=== PATIENT | female | born 1970 | race Caucasian/White ===

== ENCOUNTER 2018-04-30 15:30 | Outpatient (CLI) | payer OTHER ==
--- NOTE | 2018-05-03 15:19 | Mammography Report ---
Procedure Date: 04/30/2018 Accession Number: [id number] / [id number] Procedure: KACY - Screening Mammo Dig Bilat CPT Code: FULL RESULT: EXAM: Screening Mammo Dig Bilat DATE: 04/30/2018 3:57 PM CLINICAL HISTORY: 47-year-old nulliparous patient for screening TECHNIQUE: Bilateral CC, laterally exaggerated CC, MLO views were obtained. COMPARISON: 02/20/2015 FINDINGS: The breasts demonstrate heterogeneously dense fibroglandular parenchyma bilaterally. A few punctate, typically benign calcifications are present. No suspicious masses, clustered microcalcifications, or regions of architectural distortion are identified. IMPRESSION: Benign findings RECOMMENDATION: Routine annual screening unless otherwise clinically indicated. BIRADS CATEGORY 2: Benign findings STANDARD QUALIFYING STATEMENTS: 1. This examination was reviewed with the aid of Computer-Aided Detection (CAD). 2. A negative or benign imaging report should not delay biopsy if clinically suspicious findings are present. Consider surgical consultation if warrented. More than 5% of cancers are not identified by imaging. 3. Dense breasts may obscure an underlying neoplasm.
== END 2018-04-30 15:31 | disposition home or self-care (01) ==
LOC: DI 15:30
PROVIDERS: ATTEND Physician Assistant
DX: Z12.31 Encounter for screening mammogram for malignant neoplasm of breast (principal)
CPT/HCPCS: 77067

== ENCOUNTER 2022-11-24 14:15 | Outpatient (CLI) | payer BC ==
--- NOTE | 2022-11-24 14:57 | Ultrasound Report ---
PROCEDURE: Duplex Ext Veins Right INDICATIONS: EDEMA TECHNIQUE: Real-time imaging, as well as color and pulse Doppler interrogation, were performed of the lower extr emity deep veins from the inguinal ligament to the popliteal fossa. COMPARISON: None. FINDINGS: The deep veins are normally compressible, and free of intraluminal thrombus. Color and pu lse Doppler demonstrate normal phasic intraluminal flow. There is normal augmentation response to di stal compression maneuver. IMPRESSION: No deep venous thrombosis. Reviewed by: Kathy Pina MD on 11/24/2022 2:56 PM PST Approved by: Kathy Pina MD on 11/24/2022 2:56 PM PST Station ID: [id number]
== END 2022-11-24 14:16 | disposition home or self-care (01) ==
LOC: DI 14:15
PROVIDERS: ATTEND Nurse Practitioner Family
DX: R60.0 Localized edema (principal)

== ENCOUNTER 2022-11-27 08:30 | Outpatient (CLI) | payer BC ==
--- NOTE | 2022-11-27 12:19 | XRAY Report ---
PROCEDURE: Shoulder 3 View LT INDICATIONS: LEFT SHOULDER PAIN TECHNIQUE: 3 views of the shoulder were acquired. COMPARISON: None. FINDINGS: Bones: No fractures or dislocations. No suspicious bony lesions. Visualized ribs appear intact. Mi ld acromioclavicular degenerative narrowing. Soft tissues: No suspicious soft tissue calcifications. IMPRESSION: Mild acromioclavicular arthritic change. Reviewed by: Kathy Pina MD on 11/27/2022 12:18 PM PST Approved by: Kathy Pina MD on 11/27/2022 12:18 PM PST Station ID: [id number]
--- NOTE | 2022-11-27 16:19 | XRAY Report ---
PROCEDURE: Knee 3 View RT INDICATIONS: RIGHT KNEE PAIN TECHNIQUE: 3 views of the right knee(s) were acquired. COMPARISON: None. FINDINGS: Bones: No fractures or dislocations. No suspicious bony lesions. Soft tissues: No joint effusion. No suspicious soft tissue calcifications. IMPRESSION: No acute fracture. No osseous lesion. If symptoms and/or clinical suspicion for patholog y continue, further assessment with repeat plain films, or advanced imaging (e.g., CT, MRI, or bone s can) is recommended for further assessment. Reviewed by: Philip Lawson MD on 11/27/2022 4:18 PM PST Approved by: Philip Lawson MD on 11/27/2022 4:18 PM PST Station ID: [id number]
--- NOTE | 2022-11-27 16:40 | XRAY Report ---
PROCEDURE: Hip w/Pelvis 2-3V RT INDICATIONS: RIGHT HIP PAIN TECHNIQUE: AP pelvis with lateral view(s) of the right hip(s). COMPARISON: None. FINDINGS: Bones: No fractures or dislocations. Pelvic ring appears intact. No suspicious bony lesions. Mild bilateral hip joint space narrowing and periarticular osteophyte formation. Soft tissues: The visualized bowel gas pattern is normal. No suspicious soft tissue calcifications. IMPRESSION: Bilateral hip osteoarthritis. No acute fracture. No osseous lesion. If symptoms and/or c linical suspicion for pathology continue, further assessment with repeat plain films, or advanced zackary ging (e.g., CT, MRI, or bone scan) is recommended for further assessment. Reviewed by: Philip Lawson MD on 11/27/2022 4:38 PM PST Approved by: Philip Lawson MD on 11/27/2022 4:38 PM PST Station ID: [id number]
== END 2022-11-27 08:31 | disposition home or self-care (01) ==
LOC: DI.S 08:30
PROVIDERS: ATTEND Nurse Practitioner Family
DX: M16.0 Bilateral primary osteoarthritis of hip (principal); M25.561 Pain in right knee; M19.012 Primary osteoarthritis, left shoulder

== ENCOUNTER 2022-12-10 14:03 | Outpatient (CLI) | payer BC ==
--- NOTE | 2022-12-11 10:58 | Mammography Report ---
BILATERAL DIGITAL SCREENING MAMMOGRAM 3D/2D WITH EXAGGERATED CC: 12/10/2022 CLINICAL: Routine screening. Comparison is made to exams dated: 04/30/2018 mammogram and 02/20/2015 mammogram - [facility]. Both breasts are heterogeneously dense, which may obscure small masses (category c / 51-75% glandular tissue). No significant masses, calcifications, or other findings are seen in either breast. There has been no significant interval change. IMPRESSION: NEGATIVE There is no mammographic evidence of malignancy. A 1 year screening mammogram is recommended. Based on the Tyrer Cuzick model (a risk assessment model) the patients lifetime risk is 13.5% and he r 10 year risk is 3.4%. According to the ACR, ACS, and NCCN guidelines, an annual breast MRI exam esme ng with mammogram is recommended if the patients lifetime risk is 20% or greater. This exam was interpreted at Station ID: [id number]. NOTE: For mammograms, a report in lay terms will be sent to the patient. Approximately 15% of breast malignancies will not be visualized mammographically. In the management of a palpable breast mass, a negative mammogram must not discourage biopsy of a clinically suspicious lesion. Electronically Signed By: Carmen padilla/verna:12/10/2022 17:28:26 ACR BI-RADS Category 1: Negative 3341F PARENCHYMAL PATTERN: (D) - The breast(s) demonstrate(s) heterogeneously dense fibroglandular ricky verdin. BI-RADS CATEGORY: (1) - 1 RECOMMENDATION: (ANNUAL) - Recommend routine annual screening mammography. [id number] 1 year screening LATERALITY: (B)
== END 2022-12-10 14:04 | disposition home or self-care (01) ==
LOC: DI.S 14:03
PROVIDERS: ATTEND Nurse Practitioner Family
DX: Z12.31 Encounter for screening mammogram for malignant neoplasm of breast (principal)

== ENCOUNTER 2023-06-16 08:26 | Outpatient (CLI) | payer BC ==
[2023-06-16 15:09] LABS: BASOPHILS % (AUTO) 0.6 %; EOSINOPHILS # (AUTO) 0.4 10^3/uL (0.0-0.7); EOSINOPHILS % (AUTO) 7.4 %; HGB - HEMOGLOBIN 12.7 g/dL (12.0-16.0); LYMPHOCYTES # (AUTO) 1.5 10^3/uL (1.5-3.5); MEAN CORPUSCULAR HEMOGLOBIN 31.1 pg (27.0-31.0); MEAN CORPUSCULAR HGB CONC 31.8 g/dL (32.0-36.0); MEAN CORPUSCULAR VOLUME 97.8 fL (81.0-99.0); MEAN PLATELET VOLUME 11.1 fL (7.9-10.8); MONOCYTES # (AUTO) 0.5 10^3/uL (0.0-1.0); NEUTROPHILS # (AUTO) 2.4 10^3/uL (1.5-6.6); NEUTROPHILS % (AUTO) 49.8 %; PLT - PLATELET COUNT 244 10^3/uL (130-450); RED BLOOD COUNT 4.09 10^6/uL (4.20-5.40); RED CELL DISTRIBUTION WIDTH 13.2 % (12.0-15.0); WHITE BLOOD COUNT 4.7 x10^3/uL (4.8-10.8)
[2023-06-16 16:17] LABS: RHEUMATOID FACTOR NEGATIVE (Negative)
[2023-06-18 19:07] LABS: ANTINUCLEAR ANTIBODIES IFA Positive (.)
== END 2023-06-16 08:27 | disposition home or self-care (01) ==
LOC: LAB.S 08:26
PROVIDERS: ATTEND Physician Assistant Medical
DX: M25.50 Pain in unspecified joint (principal)
CPT/HCPCS: 36415; 85025; 86038; 86430